=== PATIENT | female | born 1960 | race Caucasian/White ===

== ENCOUNTER 2017-05-13 14:27 | Emergency (ER) | payer OTHER ==
[~2017-05-13] VITALS: Ht 167.6 cm; Wt 130.6 kg
[~2017-05-13 14:27] MED LIST: ADVAIR 250/501 DISK IH; AMITIZA24 MICROGR PO; ASPIR-LOW81 MG PO; ASPIR-TRIN325 M1 PO; COMBIVENT RESPIM4 GM IH; COZAAR25 MG PO; CRESTOR40 MG PO; FEOSOL325 MG PO; GLUCOPHAGE500 MG PO; IRON CHEWS15 MG PO; KLONOPIN1 MG PO; LASIX40 MG PO; LOVENOX40 MG/0.4 SC; Lasix PO; NEXIUM40 MG PO; OXYCODONE HCL5 MG PO; OXYCONTIN10 MG PO; SENOKOT S,PE1 TABLET PO; VICTOZA 2-0.6 MG/0.1 SC; VITAMIN B-6100 MG PO; VITAMIN D31000 UNIT PO; Vicodin,Lortab 5/500 PO; ZOLOFT100 MG PO; ZOLOFT50 MG PO; Zestril,Prinivil PO; Zoloft PO
[2017-05-13 14:49] LABS: POINT-OF-CARE METER ID UU13113747
[2017-05-13 15:24] VITALS: BP 119/79
== END 2017-05-13 15:31 | disposition home or self-care (01) ==
LOC: EME 14:27
DX: L76.21 Postprocedural hemorrhage of skin and subcutaneous tissue following a dermatologic procedure (principal); Z87.891 Personal history of nicotine dependence
CPT/HCPCS: 82948; 99281; 99284

== ENCOUNTER 2017-09-23 13:35 | Emergency (ER) | payer OTHER ==
[~2017-09-23] VITALS: Ht 165.1 cm; Wt 125.6 kg
[2017-09-23 14:20] LABS: HEMATOCRIT 39.4 % (36.0-46.0); MCH 31.9 PG (29.0-34.0); MCHC 35.5 G/DL (30.0-36.0); MCV 89.7 FL (83-99); PLATELET COUNT 267 K/uL (156-360); RBC DIS.WIDTH-CV 11.4 % (11.8-14.6); RBC DIS.WIDTH-SD 37.2 % (39-53); RED BLOOD COUNT 4.39 M/uL (3.80-5.20); WHITE BLOOD COUNT 5.4 K/uL (4.1-10.2)
[2017-09-23 14:28] LABS: CHLORIDE 106 mEq/L (99-109); POTASSIUM 4.2 mEq/L (3.7-5.4); SODIUM 140 mEq/L (136-147)
[2017-09-23 14:30] LABS: GLUCOSE 129 mg/dL (70-99)
[2017-09-23 14:34] LABS: CREATININE 0.7 mg/dL (0.6-1.3); GFR ESTIMATE (CALCULATED) > 59 mL/min/
[2017-09-23 14:35] LABS: UREA NITROGEN (BUN) 14 mg/dL (9-23)
[2017-09-23 14:40] LABS: TROP-I INTERPRETATION NEGATIVE; TROPONIN-I < 0.01 ng/mL (0.0-0.30)
[2017-09-23] MEDS ORDERED: TRICOR145 MG PO (16:51)
[2017-09-23] MEDS ORDERED: KLONOPIN1 MG PO (16:51)
[2017-09-23] MEDS ORDERED: LIPITOR20 MG PO (16:51)
[2017-09-23] MEDS ORDERED: OXYCODONE HCL10 MG PO (16:52)
[2017-09-23] MEDS ORDERED: ESOMEPRAZOLE MA40 MG PO (16:52)
[2017-09-23] MEDS ORDERED: AMITIZA24 MICROGR PO (16:52)
[2017-09-23] MEDS ORDERED: LASIX40 MG PO (16:52)
[2017-09-23] MEDS ORDERED: WELLBUTRIN XL300 MG PO (16:53)
[2017-09-23] MEDS ORDERED: LOPRESSOR25 MG PO (16:53)
[2017-09-23] MEDS ORDERED: PYRIDIUM100 MG PO (16:53)
[2017-09-23] MEDS ORDERED: KLOR-CON M2020 MEQ PO (16:54)
[2017-09-23 16:59] LABS: TROP-I INTERPRETATION NEGATIVE; TROPONIN-I < 0.01 ng/mL (0.0-0.30)
[2017-09-23 17:44] VITALS: BP 165/97
== END 2017-09-23 17:44 | disposition home or self-care (01) ==
LOC: EME 13:35
PROVIDERS: Emergency Medicine
DX: R07.89 Other chest pain (principal); F41.9 Anxiety disorder, unspecified; E11.9 Type 2 diabetes mellitus without complications; I10 Essential (primary) hypertension; J45.909 Unspecified asthma, uncomplicated; K21.9 Gastro-esophageal reflux disease without esophagitis; F32.9 Major depressive disorder, single episode, unspecified; Z98.84 Bariatric surgery status; Z96.653 Presence of artificial knee joint, bilateral; Z90.49 Acquired absence of other specified parts of digestive tract; Z87.891 Personal history of nicotine dependence; Z88.5 Allergy status to narcotic agent; Z88.1 Allergy status to other antibiotic agents
CPT/HCPCS: 71046; 80048; 84484; 85027; 90837; 90839; 93005; 99281; 99285

== ENCOUNTER → 2017-12-27 | Outpatient (CLI) | payer OTHER ==
[~2017-12-27] VITALS: Ht 167.6 cm; Wt 122.4 kg
[~2017-12-27] MED LIST changes: +BIOTIN1 MG PO; +BUSPAR10 MG PO; +BUSPAR5 MG PO; +ESOMEPRAZOLE MA40 MG PO; +GABAPENTIN100 MG PO; +GABAPENTIN300 MG PO; +KLOR-CON M2020 MEQ PO; +LIPITOR20 MG PO; +LOPRESSOR25 MG PO; +OXYCODONE HCL10 MG PO; +PREMARIN VAGI42.5 GM VG; +PYRIDIUM100 MG PO; +TIZANIDINE HCL2 MG PO; +TRICOR145 MG PO; +VITAMIN B-12500 MC5 SL; +WELLBUTRIN XL300 MG PO
== END | disposition home or self-care (01) ==
LOC: AMB 08:25
PROVIDERS: Internal Medicine
PROC: 0DBL8ZX Excision of Transverse Colon, Via Natural or Artificial Opening Endoscopic, Diagnostic (ICD-10-PCS; principal; 2017-12-27)
DX: Z12.11 Encounter for screening for malignant neoplasm of colon (principal); Z86.010 Personal history of colon polyps; D12.3 Benign neoplasm of transverse colon; K57.30 Diverticulosis of large intestine without perforation or abscess without bleeding; Z96.659 Presence of unspecified artificial knee joint; Z98.84 Bariatric surgery status; Z83.3 Family history of diabetes mellitus; Z82.49 Family history of ischemic heart disease and other diseases of the circulatory system; Z88.1 Allergy status to other antibiotic agents
CPT/HCPCS: 82948; 88305; J7643